=== PATIENT | female | born 2000 | race Caucasian/White ===

== ENCOUNTER → 2023-06-12 14:39 | Outpatient (REF) | payer BC, SELFPAY ==
[2023-06-23 01:18] LABS: Chlamydia trachomatis,ThinPrep Negative (Negative); Neisseria gonorrhoeae,ThinPrep Negative (Negative); Specimen Source Cervical
[2023-06-23 19:50] LABS: HPV, High Risk Not Detected; HPV, High Risk Source Cervical
== END ==
LOC: CPAP 14:39
PROVIDERS: ATTENDING PHYSICIAN Obstetrics & Gynecology
DX: Z01.419 Encounter for gynecological examination (general) (routine) without abnormal findings (principal); Z12.4 Encounter for screening for malignant neoplasm of cervix; Z11.3 Encounter for screening for infections with a predominantly sexual mode of transmission; Z34.90 Encounter for supervision of normal pregnancy, unspecified, unspecified trimester
CPT/HCPCS: 87491; 87591; 87624; G0123

== ENCOUNTER → 2023-06-14 13:33 | Outpatient (REF) | payer BC, SELFPAY | LOC: PNTC 13:33 | PROVIDERS: ATTENDING PHYSICIAN Obstetrics & Gynecology | DX: Z36.0 Encounter for antenatal screening for chromosomal anomalies (principal); Z36.82 Encounter for antenatal screening for nuchal translucency | CPT/HCPCS: 76801; 76813 ==

== ENCOUNTER → 2023-06-27 10:44 | Outpatient (REF) | payer BC, SELFPAY ==
[2023-06-27 11:24] LABS: % Basophils 0.5 % (0-2); % Eosinophils 1.4 % (0-6); % Immature Granulocytes 1.3 % (0-0.5); % Lymphocytes 18.9 % (20.5-51.1); % Monocytes 5.4 % (1.7-9.3); % Neutrophils 72.5 % (42.2-75.2); Absolute Eosinophils 0.1 10^3/uL (0-0.7); Absolute Immature Granulocytes 0.1 10^3/uL (0-0.05); Absolute Lymphocytes 1.6 10^3/uL (1.2-3.4); Absolute Monocytes 0.5 10^3/uL (0.1-0.6); Absolute Neutrophils 6.3 10^3/uL (1.4-6.5); Hematocrit 37.6 % (37.0-47.0); Hemoglobin 12.8 g/dL (12.0-16.0); Mean Corpuscular Hgb 28.9 pg (27.0-31.0); Mean Corpuscular Volume 84.9 fL (81.0-99.0); Mean Platelet Volume 10.1 fL (7.4-10.4); Nucleated Red Blood Cells % 0 %; Platelet Count 217 10^3/uL (130-400); Red Blood Cell Count 4.43 10^6/uL (4.20-5.40); Red Cell Dist. Width 13.1 % (11.5-14.5); White Blood Cell Count 8.7 10^3/uL (4.8-10.8)
[2023-06-27 11:27] LABS: Urine Albumin Negative (Neg - Trace); Urine Bilirubin Negative (Negative); Urine Character Clear (Clear); Urine Color Yellow; Urine Glucose Negative (Negative); Urine Ketone Negative (Negative); Urine Leukocyte Negative (Negative); Urine Nitrite Negative (Negative); Urine Occult Blood Negative (Negative); Urine Urobilinogen Negative (Neg - 1+); Urine pH 6.5 (5.0-9.0)
[2023-06-27 12:21] LABS: Hepatitis B Surface Antigen Negative (Negative)
[2023-06-28 19:28] LABS: Hepatitis C Antibody Negative (Negative)
[2023-06-28 19:39] LABS: Rubella Positive
[2023-06-29 17:19] LABS: Syphilis/T. pallidum Ab Reflex Negative (Negative)
[2023-06-29 19:21] LABS: HIV Combo Negative (Negative)
== END ==
LOC: REG 10:44
PROVIDERS: ATTENDING PHYSICIAN Obstetrics & Gynecology
DX: Z34.90 Encounter for supervision of normal pregnancy, unspecified, unspecified trimester (principal)
CPT/HCPCS: 36415; 80055; 81003; 84702; 86803; 86850; 86900; 86901; 87086; 87389

== ENCOUNTER → 2023-08-14 10:50 | Outpatient (REF) | payer BC, SELFPAY | LOC: PNTC 10:50 | PROVIDERS: ATTENDING PHYSICIAN Obstetrics & Gynecology | DX: Z34.82 Encounter for supervision of other normal pregnancy, second trimester (principal) | CPT/HCPCS: 76805 ==

== ENCOUNTER 2023-08-19 19:51 | Emergency (ER) | payer BC, SELFPAY ==
[2023-08-19 19:54] VITALS: BP 111/76
[2023-08-19 20:08] LABS: % Basophils 0.3 % (0-2); % Eosinophils 0.1 % (0-6); % Immature Granulocytes 1.2 % (0-0.5); % Lymphocytes 3.2 % (20.5-51.1); % Monocytes 2.1 % (1.7-9.3); % Neutrophils 93.1 % (42.2-75.2); Absolute Basophils 0.1 10^3/uL (0-0.2); Absolute Immature Granulocytes 0.2 10^3/uL (0-0.05); Absolute Lymphocytes 0.6 10^3/uL (1.2-3.4); Absolute Monocytes 0.4 10^3/uL (0.1-0.6); Absolute Neutrophils 16.2 10^3/uL (1.4-6.5); Hematocrit 38.1 % (37.0-47.0); Hemoglobin 13.3 g/dL (12.0-16.0); Mean Corp Hgb Conc. 34.9 g/dL (33.0-37.0); Mean Corpuscular Hgb 29.8 pg (27.0-31.0); Mean Corpuscular Volume 85.2 fL (81.0-99.0); Mean Platelet Volume 10.3 fL (7.4-10.4); Nucleated Red Blood Cells % 0 %; Platelet Count 187 10^3/uL (130-400); Red Blood Cell Count 4.47 10^6/uL (4.20-5.40); Red Cell Dist. Width 12.7 % (11.5-14.5); White Blood Cell Count 17.4 10^3/uL (4.8-10.8)
[2023-08-19 20:26] LABS: ALT (SGPT) 15 U/L (0-35); AST (SGOT) 22 U/L (14-36); Alkaline Phosphatase 82 U/L (38-126); Blood Urea Nitrogen 8 mg/dl (7-17); Calcium 8.7 mg/dl (8.4-10.2); Carbon Dioxide 23 mmol/L (22-30); Chloride 102 mmol/L (98-107); Glucose 114 mg/dl (70-99); Lipase 46 U/L (23-300); Potassium 3.9 mmol/L (3.5-5.1); Sodium 135 mmol/L (135-145); Total Bilirubin 0.5 mg/dl (0.2-1.3); Total Protein 6.8 g/dl (6.3-8.2); eGFR > 60.00
--- NOTE | 2023-08-19 22:15 | ED.GENMED ---
History of Present Illness
General
Chief Complaint: Abdominal Symptoms
Source: patient
Exam Limitations: none
Time Seen by Provider: 08/19/23 20:24
Nursing documentation reviewed up to this point in time: agreed with
Travel History
Have you had any contact with someone who has COVID-19?: No
Do you have any symptoms of coronavirus? Fever > 100 degrees, chills, cough, shortness of breath, sore throat, loss of taste or smell, muscle aches, or headache?: No
History of Present Illness
History of Present Illness:
23 yr old female approximate 21 weeks presents to the ER for evaluation of vomiting diarrhea. Patient started vomiting this morning and has vomited every 15 minutes. She is not sure if she has food poisoning or virus. They did eat out
and her also has similar symptoms. She did feel lightheaded called [facility], her SERVICE AGENT who recommended she come to the ER for fluids. She did have an Zofran at home and took it did feel better but does feel
nauseous again now. She had a normal ultrasound July 13. She is due December 24. She denies any abdominal pain/vaginal bleeding.
Past History
Past History
ED Past Medical History: Other (Ovarian cyst, 3 miscarriages)
ED Past Surgical History: None
Social History
Tobacco: Non-smoker
Alcohol: None
Personal:
Living: with family
Review of Systems
Review of Systems
Allergies reviewed?: Yes
All Other Systems: ROS reviewed and negative except as documented in HPI and ROS
Constitutional: Reports no symptoms
ABD/GI: Reports nausea, vomiting and diarrhea; Denies abdominal pain
: Reports no symptoms; Denies bleeding
Musculoskeletal: Reports no symptoms
Skin: Reports no symptoms
Neurological: Reports no symptoms
Psychiatric: Reports no symptoms
Phy Exam
General Physical Exam
General Presentation: no apparent distress
General age: appears stated age
General Skin: warm and dry
General Habitus: normal
General Mental: alert
General Hydration: appears well hydrated
Gastrointestinal Exam
Gastrointestinal Exam: non tender and soft
Neurological Exam
Neurological Exam: alert and oriented x3
Musculoskeletal Exam
Musculoskeletal Exam: full ROM
Skin Exam
Skin Exam: normal color and warm/dry
Psychiatric Exam
Psychiatric Exam: normal mood/affect
Course
Orders/Labs/Results
Orders:
Orders
08/19/23 20:02
Complete Blood Count/With Diff Urgent
Comprehensive Metabolic Panel Urgent
Lipase Urgent
08/19/23 22:16
0.9% Sodium Chloride 1000 ml [Nss] 1,000 ml IV BOLUS
Ondansetron Injectable [Zofran] 4 mg IV NOW STA
08/19/23 22:18
Vital Signs- Treatment ONCE
Frequency: Once
08/20/23 00:15
Metoclopramide [Reglan] 10 mg IV NOW STA
08/20/23 00:48
0.9% Sodium Chloride 500 ml [Nss] 500 ml IV ONCE
Abnormal Lab Results
08/19/23
20:02
WBC 17.4 H 10^3/uL
(4.8-10.8)
Abs Immat Gran (auto) 0.2 H 10^3/uL
(0-0.05)
Absolute Neuts (auto) 16.2 H 10^3/uL
(1.4-6.5)
Absolute Lymphs (auto) 0.6 L 10^3/uL
(1.2-3.4)
Immature Gran % 1.2 H %
(0-0.5)
Neutrophils % 93.1 H %
(42.2-75.2)
Lymphocytes % 3.2 L %
(20.5-51.1)
Creatinine 0.4 L mg/dL
(0.6-1.0)
Glucose 114 H mg/dl
(70-99)
08/19/23 20:02
08/19/23 20:02
Vital Signs
Initial and Last Documented VS:
Initial Vital Signs
Temp Pulse Resp BP Pulse Ox
98.0 F 106 18 111/76 98
08/19/23 19:54 08/19/23 19:54 08/19/23 19:54 08/19/23 19:54 08/19/23 19:54
Last Documented Vital Signs
Temp Pulse Resp BP Pulse Ox
98.0 F 96 20 108/63 100
08/19/23 19:54 08/19/23 23:33 08/19/23 23:33 08/19/23 23:33 08/19/23 23:33
MDM/Problems Addressed
Differential Diagnosis Includes:
Not limited to gastroenteritis, viral syndrome food poisoning/dehydration
MDM/Problems Addressed:
Patient is 21 weeks presented for vomiting diarrhea. Patient reports started with similar symptoms unsure if viral versus food poisoning both went out to a restaurant. Patient was given Zofran fluids Reglan feeling much better
hydrated. wbc noted. pt feeling much better nontoxic tolerating fluids here abdomen soft nontender no complaints of abdominal pain cramping bleeding. Normal heart tones obtained by RN. Will DC home. Patient
Chronic conditions affecting care:
Patient 21 weeks
*Critical Care Note
Total Time (30-74mins, 75-104mins- exclusive of procedures): Not Applicable
ED Attending Note
-
Portions of this chart may have been created with voice recognition software.� Occasional wrong word or��sound alike� substitutions may have occurred due to the inherent limitations of voice recognition software.
Discharge Plan
Departure
Patient Disposition: Home (Routine Discharge)
Date of Disposition: 08/20/23
Time of Disposition: 01:39
Patient with high blood pressure during this ER visit?: No
Condition: Fair
Covid-19: Not Applicable
Discharge Problem:
Nausea, vomiting and diarrhea
Instructions: Diarrhea in teens and adults, Nausea and Vomiting, Adult (DC)
Prescriptions:
No Action
prenat.vits,yobany,clt-rdnl-oxpsy Tablet
1 tab PO DAILY
acetaminophen 325 mg Tablet
650 mg PO Q4HPRN PRN (Reason: mild pain) Qty: 0 0RF
sennosides-docusate sodium [Senna Plus] 8.6-50 mg Tablet
1 tab PO DAILYPRN PRN (Reason: constipation) Qty: 0 0RF
ibuprofen 600 mg Tablet
600 mg PO Q6HPRN PRN (Reason: moderate pain/cramps) Qty: 45 0RF
ferrous sulfate [Iron (ferrous sulfate)] 325 mg (65 mg iron) Tablet
325 mg PO DAILY
Referrals:
Matheus Neves CRNP [Family Provider] -
Activity Restrictions/Additional Instructions:
Clear fluids for the next 24 hours followed by bland solid foods as tolerated. Follow-up with family doctor/SERVICE AGENT in the next 2 to 3 days for reevaluation return if any worsening of symptoms
Interventions
Interventions:
*Risk Screen - Suicide Last Done: 08/19/23 19:55
*General Assessment Last Done: 08/19/23 19:55
*Neglect/Abuse Screening Last Done: 08/19/23 19:55
*ED COVID-19 Vaccine History Last Done: 08/19/23 19:55
[facility] Assessment Last Done: 08/19/23 22:18
Discharge Date and Time
Print Language: GREEK
[2023-08-19 22:18] VITALS: BMI 29.0
[2023-08-19 22:30] VITALS: BP 112/63
[2023-08-19] MEDS: NSS 1000 IV (22:35)
[2023-08-19] MEDS: ZOFRAN 4 MG IV (22:35)
[2023-08-19 23:33] VITALS: BP 108/63
[2023-08-20] MEDS: REGLAN 10 MG IV (00:47)
[2023-08-20] MEDS: NSS 500 IV (00:48)
[2023-08-20 01:30] VITALS: BP 102/70
[2023-08-20 02:17] VITALS: BP 105/66
== END 2023-08-20 02:20 | disposition home or self-care (01) ==
LOC: EMR 19:51
PROVIDERS: Emergency Medicine; EMERGENCY PHYSICIAN Student in an Organized Health Care Education/Training Program; FAMILY PHYSICIAN Registered Nurse
DX: O26.892 Other specified pregnancy related conditions, second trimester (principal); O21.2 Late vomiting of pregnancy; R19.7 Diarrhea, unspecified; Z3A.21 21 weeks gestation of pregnancy
CPT/HCPCS: 99284; 96374; 96375; 96361; 80053; 83690; 85025

== ENCOUNTER → 2023-11-29 11:10 | Outpatient (REF) | payer BC, SELFPAY | LOC: CPAP 11:10 | PROVIDERS: ATTENDING PHYSICIAN Obstetrics & Gynecology | DX: Z36.85 Encounter for antenatal screening for Streptococcus B (principal) | CPT/HCPCS: 87070 ==

== ENCOUNTER 2023-12-22 15:28 | Inpatient (IN) | payer BC, SELFPAY ==
[2023-12-22 15:34] VITALS: BMI 30.2
[2023-12-22 15:40] VITALS: BP 130/87
[2023-12-22 18:58] LABS: % Basophils 0.6 % (0-2); % Eosinophils 0.4 % (0-6); % Immature Granulocytes 1.5 % (0-0.5); % Lymphocytes 21.2 % (20.5-51.1); % Monocytes 7.3 % (1.7-9.3); Absolute Basophils 0.1 10^3/uL (0-0.2); Absolute Immature Granulocytes 0.2 10^3/uL (0-0.05); Absolute Lymphocytes 2.2 10^3/uL (1.2-3.4); Absolute Monocytes 0.8 10^3/uL (0.1-0.6); Absolute Neutrophils 7.3 10^3/uL (1.4-6.5); Hematocrit 33.2 % (37.0-47.0); Hemoglobin 11.5 g/dL (12.0-16.0); Mean Corp Hgb Conc. 34.6 g/dL (33.0-37.0); Mean Corpuscular Hgb 27.4 pg (27.0-31.0); Mean Corpuscular Volume 79.2 fL (81.0-99.0); Mean Platelet Volume 11.8 fL (7.4-10.4); Nucleated Red Blood Cells % 0 %; Platelet Count 145 10^3/uL (130-400); Red Blood Cell Count 4.19 10^6/uL (4.20-5.40); Red Cell Dist. Width 13.1 % (11.5-14.5); White Blood Cell Count 10.6 10^3/uL (4.8-10.8)
[2023-12-23] MEDS: ZOFRAN 4 MG IV ×2 (00:14→06:33)
[2023-12-23] MEDS: FLUSH (NSS) 2 FLUSH IV (00:14)
[2023-12-23] MEDS: SUBLIMAZE 100 MCG EPIDURAL (06:48)
[2023-12-23] MEDS: FENTANYL/BUPIVACAINE 100 EPIDURAL (06:48)
[2023-12-23] MEDS: TUMS CHEWABLE TABLET 400 MG PO (08:57)
[2023-12-23] MEDS: MOTRIN 600 MG PO ×2 (14:04→20:06)
[2023-12-24] MEDS: TYLENOL 650 MG PO (00:43)
[2023-12-24 06:00] LABS: Hematocrit 27.4 % (37.0-47.0); Hemoglobin 9.7 g/dL (12.0-16.0)
[2023-12-24] MEDS: MOTRIN 600 MG PO ×2 (14:42→21:01)
[2023-12-24] MEDS: SENOKOT-S 1 TABLET PO (14:42)
[2023-12-24] MEDS: PRENATAL PLUS 1 TABLET PO (14:42)
[2023-12-25] MEDS: TUMS CHEWABLE TABLET 400 MG PO (01:29)
[2023-12-25] MEDS: PRENATAL PLUS 1 TABLET PO (09:20)
[2023-12-25] MEDS: MOTRIN 600 MG PO (09:20)
[2023-12-25] MEDS: SENOKOT-S 1 TABLET PO (09:20)
[2023-12-25 15:19] LABS: Syphilis/T. pallidum Ab Reflex Negative (Negative)
== END 2023-12-25 12:44 | disposition home or self-care (01) | DRG 807 ==
LOC: LDRP 15:28
PROVIDERS: ADMITTING PHYSICIAN Obstetrics & Gynecology
PROC: 10E0XZZ Delivery of Products of Conception, External Approach (ICD-10-PCS; 2023-12-23)
PROC: 0UQMXZZ Repair Vulva, External Approach (ICD-10-PCS; 2023-12-23)
PROC: 10907ZC Drainage of Amniotic Fluid, Therapeutic from Products of Conception, Via Natural or Artificial Opening (ICD-10-PCS; 2023-12-23)
PROC: 4A1HXCZ Monitoring of Products of Conception, Cardiac Rate, External Approach (ICD-10-PCS; 2023-12-23)
PROC: 0HQ9XZZ Repair Perineum Skin, External Approach (ICD-10-PCS; 2023-12-23)
DX: O70.0 First degree perineal laceration during delivery (principal); Z37.0 Single live birth; Z3A.39 39 weeks gestation of pregnancy
CPT/HCPCS: 85014; 85018; 85025; 86780; 86850; 86900; 86901

== ENCOUNTER → 2025-01-12 13:17 | Outpatient (REF) | payer OTHER, SELFPAY | LOC: PNTC 13:17 | PROVIDERS: ATTENDING PHYSICIAN Obstetrics & Gynecology | DX: O36.80X0 Pregnancy with inconclusive fetal viability, not applicable or unspecified (principal) | CPT/HCPCS: 76801; 76817 ==

== ENCOUNTER 2025-01-14 06:16 | Day surgery (SDC) | payer OTHER, SELFPAY ==
[2025-01-14 13:40] VITALS: BP 105/61
[2025-01-14 13:47] VITALS: BMI 25.5
[2025-01-14 13:48] VITALS: BMI 25.5
[2025-01-14] MEDS: VIBRAMYCIN 270 MG IV (13:55)
[2025-01-14] MEDS: NORMOSOL-R/PLASMALYTE-A 1000 IV (13:55)
[2025-01-14 14:02] LABS: Hematocrit 37.2 % (37.0-47.0); Hemoglobin 13.0 g/dL (12.0-16.0)
[2025-01-14 16:25] VITALS: BP 103/53
[2025-01-14] MEDS: ZOFRAN 4 MG IV (16:38)
[2025-01-14 16:40] VITALS: BP 94/50
[2025-01-14 16:55] VITALS: BP 108/59
[2025-01-14 17:10] VITALS: BP 122/68
== END 2025-01-14 17:20 | disposition home or self-care (01) ==
LOC: SDS 06:16
PROVIDERS: ATTENDING PHYSICIAN Obstetrics & Gynecology
DX: O02.1 Missed abortion (principal); Z3A.08 8 weeks gestation of pregnancy
CPT/HCPCS: 59820; 85014; 85018; 86850; 86900; 86901; 88305